=== PATIENT | male | born 1960 | race Caucasian/White ===

== ENCOUNTER 2020-11-26 09:27 | Outpatient (CLI) | payer SELFPAY ==
[2020-11-26 09:38] VITALS: BMI 22.4
--- NOTE | 2020-11-26 09:50 | ECG_ITS ---
[facility] Test Date: 2020-11-26 Pat Name: Peter Marte Department: Room: Gender: Male Consultant Rn: : 1960 Requested By: Michelle Reddy Order Number: [id number] Brooks MD: Michelle Reddy M.D. Interpretive Statements NAME OF STUDY: EXERCISE SESTAMIBI STRESS TEST INDICATION: Chest Pain Baseline blood pressure of 112/80 mm Hg and heart rate 91 beats per minute. EKG showed normal sinus rhythm, leftward axis with normal ST-Ts. The patient exercised for 4 minutes 27 seconds on a standard Akil protocol. Patient attained a maximum heart rate of 142 beats per minute(88% of the maximum predicted heart rate) with a blood pressure at the peak exercise of 161/69 mm Hg. The EKG at the peak exercise revealed. Patient did not have any chest pain or any significant arrhythmis with the exercise During the recovery phase, there were no new changes. Blood pressure at the end of the recovery phase was 101/74 mm Hg with a heart rate of 97 beats per minute. CONCLUSION: 1. Normal EKG response to treadmill exercise. 2. No exercise-induced chest pain or cardiac arrhythmia. 3. Decreased exercise tolerance, attained a maximum of 7 METs. Maximum VO2 of 24.5 mL/kg/min. 4. Baseline normal blood pressure with normal response to exercise. 5. Perfusion scan will be documented separately. Electronically Signed On 11-29-2020 12:37:45 CDT by Michelle Reddy M.D. [id number]
--- NOTE | 2020-11-26 09:50 | NMCV_ITS ---
NM declan perf SPECT r/s* [id number] MartePeter morfin Age: 59 Gender: M : 1960 Exam Date: 11/26/2020 10:30 Ordering Phys: Michelle Reddy MD ([email or web address]) Technologist: SUMIT Haddad Exam Location: [facility] Indications: CHEST PAIN STRESS TEST Please see separate stress test report in [facility] for full findings IMAGE PROTOCOL Rest/Stress 1 Exercise Day Radiopharmaceutical Dose (mCi) Administration Site Administered by Rest: Tc-99m 10.8 IV SUMIT Leon Sestamibi Stress:Tc-99m 32.3 IV SUMIT Leon Sestamibi Rest: 26-Nov-2020 60 Discovery 630 Stress: 26-Nov-2020 30 Discovery 630 Radiopharmaceutical was injected at 85 % maximum heart rate. Images obtained in supine and prone position. SPECT RESULTS Technical Quality: Excellent Raw Data Analysis: Normal Image Corrections: No attenuation or motion correction applied Summed Stress Score: 0 Summed Rest Score: 0 Summed Difference Score: 0 PERFUSION FINDINGS Very small size perfusion abnormality of mild severity of mid inferior wall on rest images with improved tracer uptake on stress images. This is likely suggestive of attenuation artifact. FUNCTIONAL RESULTS (calculated via Gated SPECT) Stress Image LV EF (%): 82 Stress EDV (mL):61 TID: 0.8 Stress ESV (mL):11 FUNCTIONAL FINDINGS: The left ventricle is normal in size. Transient Ischemia Dilatation of 0.8. The left ventricular ejection fraction is normal with a value of 82%. There is hyperdynamic left ventricular wall thickening. No regional wall motion normality. Normal end-diastolic end-systolic volumes. IMPRESSIONS 1. Myocardial perfusion imaging is normal. Attenuation artifact noted in mid inferior wall. 2. Overall left ventricular systolic function is normal without regional wall motion abnormalities. 3. The left ventricular ejection fraction is normal with a value of 82%. 4. No coronary ischemia based on the study. 5. EKG portion of the study will be reported separately. Michelle Reddy MD (Electronically Signed) Final Date: 28 November 2020 13:56 S
[2020-11-26 11:25] VITALS: BP 120/82; PULSE 97
== END 2020-11-26 09:28 | disposition home or self-care (01) ==
PROVIDERS: PCP Nurse Practitioner Family; Visit Provider Internal Medicine Cardiovascular Disease
DX: R07.9 Chest pain, unspecified (principal)
CPT/HCPCS: 78452; 93017; A9500

== ENCOUNTER → 2021-02-08 14:12 | Outpatient (BNVA) | payer SELFPAY | PROVIDERS: PCP Nurse Practitioner Family; Visit Provider Internal Medicine Cardiovascular Disease | DX: Z20.822 Contact with and (suspected) exposure to COVID-19 (principal); Z01.812 Encounter for preprocedural laboratory examination | CPT/HCPCS: 87635 ==

== ENCOUNTER 2021-02-15 10:01 | Outpatient (CLI) | payer SELFPAY ==
--- NOTE | 2021-02-15 13:19 | PFTS_ITS ---
Date of Study:02/15/21 Date of Dictation: MECHANICS: Forced vital capacity (FVC) is reduced. Forced expiratory volume in one second (FEV1) is reduced. FEV1/FVC is reduced. FLOW VOLUME LOOP: Reduced flow at all lung volumes with significant scooping. LUNG VOLUMES: Total lung capacity (TLC) is normal. Residual volume (RV) is increased. DIFFUSING CAPACITY FOR CARBON MONOXIDE: Moderately reduced. INTERPRETATION: The postbronchodilator spirometry is consistent with severe airflow obstruction. There is a significant postbronchodilator response. Lung volumes are consistent with air trapping. Gas exchange (DLCO) is moderately reduced. MTDD
== END 2021-02-15 10:02 | disposition home or self-care (01) ==
LOC: RT 10:03
PROVIDERS: PCP Nurse Practitioner Family; Visit Provider Internal Medicine Cardiovascular Disease
DX: R06.00 Dyspnea, unspecified (principal)
CPT/HCPCS: 94060; 94726; 94729

== ENCOUNTER 2021-04-06 08:47 | Outpatient (CLI) | payer SELFPAY ==
[2021-04-06 09:24] LABS: Basophils # 0.1 10^3/uL (0.0-0.1); Basophils % 0.6 %; Eosinophils # 0.2 10^3/uL (0.0-0.8); Eosinophils % 2.1 %; Hematocrit 41.2 % (42.0-52.0); Hemoglobin 13.6 g/dL (11.7-16.6); Lymphocytes # 4.4 10^3/uL (0.8-4.8); Lymphocytes % 41.7 %; Mean Corpuscular Hemoglobin 32.6 pg (28.0-34.0); Mean Corpuscular Volume 98.8 fl (80-94); Mean Platelet Volume 9.4 fL (7.4-10.4); Monocytes # 0.8 10^3/uL (0.2-0.9); Monocytes % 7.4 %; Neutrophils # 4.99 10^3/uL (1.8-7.7); Neutrophils % 47.6 %; Nucleated Red Blood Cells % 0 %; Platelet Count 337 10^3/cmm (130-400); Red Blood Count 4.17 10^6/uL (4.1-5.3); Red Cell Distribution Width 14.2 % (12.1-15.1); White Blood Count 10.5 10^3/uL (4.0-10.0)
[2021-04-06 09:46] LABS: Alanine Aminotransferase 28 U/L (0-41); Albumin Level 4.4 g/dL (3.5-5.2); Alkaline Phosphatase 44 IU/L (40-130); Anion Gap 16.6 (5-19); Aspartate Amino Transferase 25 U/L (0-40); Blood Urea Nitrogen 18 mg/dL (8-23); Calcium 8.6 mg/dL (8.5-10.5); Carbon Dioxide 23 mmol/L (22-29); Chloride 106 mmol/L (98-107); Chol HDL Ratio 2.73 mg/dL (1.0-5.00); Cholesterol 172 mg/dL (0-200); Globulin 2.5 g/dL (1.3-4.6); Glomerular Filtration Rate 98.6 mL/min (90-130); Glucose 96 mg/dL (65-115); HDL Cholesterol 63 mg/dL (60-100); LDL Cholesterol Calculated 85 mg/dL (50-129); LDL HDL Ratio 1.35 RATIO (0.00-3.22); Osmolality Calculated 294 mOsm/kg (285-295); Potassium 4.6 mmol/L (3.5-5.1); Sodium 141 mmol/L (136-145); Total Bilirubin 0.4 mg/dL (0.15-1.2); Total Protein 6.9 g/dL (6.6-8.7); Triglycerides 122 mg/dL (0-150)
== END 2021-04-06 08:48 | disposition home or self-care (01) ==
LOC: LAB 08:49
PROVIDERS: PCP Nurse Practitioner Family; Visit Provider Internal Medicine Cardiovascular Disease
DX: E78.5 Hyperlipidemia, unspecified (principal); I10 Essential (primary) hypertension; J44.9 Chronic obstructive pulmonary disease, unspecified
CPT/HCPCS: 36415; 80053; 80061; 85025

== ENCOUNTER 2021-05-23 08:23 | Outpatient (CLI) | payer SELFPAY ==
--- NOTE | 2021-05-23 08:45 | CT_ITS ---
WS: [id number] LDCT LUNG CANCER SCREENING HISTORY: Lung cancer screening TECHNIQUE: Axial imaging performed from the apices to 1 cm below the costophrenic angles. Coronal and sagittal reformats are submitted with axial MIP series. All CT scans at [facility] use at least one of these dose optimization techniques: automated exposure control; mA and/or kV adjustment per patient size (includes targeted exams where dose is matched to clinical indication); or iterativ e reconstruction. DLP: 80.71 mGy.cm DIvol: Mean CTDIvol: 1.60 (mGy) COMPARISON: None available. Diagnostic quality: Satisfactory Lung Nodules: Slightly lobulated nodule measuring 6 mm in the RIGHT upper lobe closely associated wit h the major fissure. There is in the additional more elongated mass which may be an endobronchial les ion in the RIGHT upper lobe with a mean diameter of 19 mm. (length of 26 mm x 12 mm). There is adjace nt bronchial wall thickening with tethering and distortion of the adjacent lung parenchyma. Lungs: Otherwise lungs are hyperinflated. Benign granuloma RIGHT lower lobe. Heart: Normal size. Other findings: Hepatic granulomata. No adrenal mass. Mild atherosclerosis aorta. Peripherally calcif ied mass in the superior mediastinum is probably a thyroid nodule measuring 2.1 x 1.4 cm. Loss of the superior endplates of T6 and T7. CT/CT lung screening [id number] IMPRESSION: LUNG-RADS: 4BS-Suspicious with Significant Findings FOLLOW UP: PET/CT recommended OTHER FINDINGS (S MODIFIER): Peripherally calcified mass in the superior medias tinum. Suspect this is a partially calcified nodule from the LEFT thyroid. Keven mmend thyroid ultrasound. Also consider bronchoscopy to evaluate the lesion in the RIGHT upper lobe which may be an endobronchial lesion. There are 2 suspicious lesions in the RIGHT up per lobe.
== END 2021-05-23 08:24 | disposition home or self-care (01) ==
PROVIDERS: PCP Nurse Practitioner Family; Visit Provider Internal Medicine Critical Care Medicine
DX: Z12.2 Encounter for screening for malignant neoplasm of respiratory organs (principal); F17.200 Nicotine dependence, unspecified, uncomplicated; R91.8 Other nonspecific abnormal finding of lung field
CPT/HCPCS: 71271

== ENCOUNTER 2021-07-15 08:33 | Outpatient (CLI) | payer SELFPAY ==
--- NOTE | 2021-07-15 09:30 | US_ITS ---
WS: [email or web address] ULTRASOUND-GUIDED LEFT THYROID NODULE FNA HISTORY: PET positive thyroid nodule, nodule lower pole LEFT thyroid. Procedure, risks, and complications were explained to the patient. Consent has been obtained. Comparison: PET/CT from 06/11/2021 is reviewed. The skin is cleansed with ChloraPrep and anesthetized with 1% buffered lidocaine. FNA performed with 25 gauge needle. neurology technologist is present to fix slides. Only a single fine-needle aspiration was performed. Patient became lightheaded and vomited after the first fine needle aspiration. I believe this is probably a vasovagal reaction. As the dizziness and v omiting persisted no additional biopsies were performed at this time. The first biopsy did appear to obtain soft tissue from the nodule. Will send this for evaluation by pathology to see if it is suffic ient. US/US biopsy/FNA thyroid [id number] IMPRESSION: Only a single FNA is performed as the patient had a significant vasovagal react ion at this time. If the final pathology results are insufficient for diagnosis we can attempt additional aspiration if the patient is willing.
== END 2021-07-15 08:34 | disposition home or self-care (01) ==
PROVIDERS: PCP Nurse Practitioner Family; Visit Provider Internal Medicine Critical Care Medicine
DX: E04.1 Nontoxic single thyroid nodule (principal)
CPT/HCPCS: 10005; 88173; 88305

== ENCOUNTER 2021-08-04 13:15 | Outpatient (CLI) | payer SELFPAY ==
--- NOTE | 2021-08-04 13:45 | US_ITS ---
WS: [email or web address] ULTRASOUND-GUIDED LEFT THYROID NODULE FNA HISTORY: PET positive left thyroid nodule Procedure, risks, and complications were explained to the patient. Consent has been obtained. Solid mass which is PET/CT positive extends from the inferior pole of the LEFT thyroid. The skin is cleansed with ChloraPrep and anesthetized with 1% buffered lidocaine. FNA performed with 25 gauge needles. instructional technologist is present to fix slides. Study was terminated after the 3 fine-needle aspirations as patient experienced a vasovagal reaction. US/US biopsy/FNA thyroid [id number] IMPRESSION: 1. Fine-needle aspiration performed solid mass which is PET/CT positive inferi or pole LEFT thyroid. 3 fine-needle aspirations were performed. As on the prior biopsy attempt the patient had a significant vasovagal reaction and the examin ation needed to be terminated. 2. If this fine-needle aspiration is insufficient for diagnosis this nodule ma y need to be surgically removed. This is the second attempt at achieving materi al for cytopathology.
== END 2021-08-04 13:16 | disposition home or self-care (01) ==
LOC: RAD 13:18
PROVIDERS: PCP Nurse Practitioner Family; Visit Provider Internal Medicine Critical Care Medicine
DX: E04.1 Nontoxic single thyroid nodule (principal)
CPT/HCPCS: 10005; 88173; 88305

== ENCOUNTER 2021-09-13 08:41 | Outpatient (CLI) | payer SELFPAY ==
--- NOTE | 2021-09-13 08:57 | CT_ITS ---
WS: [email or web address] LDCT LUNG CANCER SCREENING TECHNIQUE: Noncontrast CT of the chest with coronal and sagittal reformatted images. CLINICAL INFORMATION: Lung cancer screening COMPARISON: CT Lung 05/23/21 DLP: 81.79 mGy.cm DIvol: Mean CTDIvol: 1.60 (mGy) All CT scans at [facility] use at least one of these dose optimization techniques: automat ed exposure control; mA and/or kV adjustment per patient size (includes targeted exams where dose is matched to clinical indication); or iterative reconstruction. FINDINGS: Previously described FDG avid 2.6 x 1.2 cm RIGHT upper lobe lesion is unchanged and suspicious for ne oplasm. Adjacent 6 mm lesion is also unchanged. Slightly spiculated lesion super segment RIGHT lower lobe lesion is also unchanged measuring 5 mm. LEFT thyroid calcified nodule measuring 2.2 x 1.5 cm is unchanged. Aortic calcification. No mediastin al or hilar lymphadenopathy. No axillary lymphadenopathy. Adrenal glands are normal. Calcified granuloma RIGHT lower lobe. CT/CT lung screening [id number] IMPRESSION: LUNG-RADS: 4B-Suspicious FOLLOW UP: Chest CT with or without contrast 3 months
== END 2021-09-13 08:42 | disposition home or self-care (01) ==
PROVIDERS: PCP Nurse Practitioner Family; Visit Provider Internal Medicine Critical Care Medicine
DX: Z12.2 Encounter for screening for malignant neoplasm of respiratory organs (principal); I70.0 Atherosclerosis of aorta
CPT/HCPCS: 71271

== ENCOUNTER → 2021-11-29 09:33 | Outpatient (BNVA) | payer SELFPAY | PROVIDERS: PCP Nurse Practitioner Family; Referring Provider Internal Medicine Critical Care Medicine; Visit Provider Internal Medicine | DX: E04.1 Nontoxic single thyroid nodule (principal); K21.9 Gastro-esophageal reflux disease without esophagitis | CPT/HCPCS: 36415; 84443 ==

== ENCOUNTER 2022-02-10 07:12 | Outpatient (CLI) | payer SELFPAY ==
--- NOTE | 2022-02-10 07:20 | CT_ITS ---
WS: [email or web address] LDCT LUNG CANCER SCREENING TECHNIQUE: Noncontrast CT of the chest with coronal and sagittal reformatted images. CLINICAL INFORMATION: Lung cancer screening COMPARISON: September 13, 2021 and PET/CT June 11, 2021 DLP: 85.71 mGy.cm DIvol: Mean CTDIvol: 1.60 (mGy) All CT scans at [facility] use at least one of these dose optimization techniques: automat ed exposure control; mA and/or kV adjustment per patient size (includes targeted exams where dose is matched to clinical indication); or iterative reconstruction. FINDINGS: Previously described FDG avid 2.6 x 1.2 cm RIGHT upper lobe spiculated lesion is unchanged since September 13, 2021 and remains suspicious for neoplasm. Adjacent 6 mm satellite lesion is also unchanged. Slightly spiculated lesion super segment RIGHT lower lobe lesion is also unchanged measuring [address] able 4 mm subpleural nodule RIGHT middle lobe. Calcified granuloma RIGHT lower lobe. LEFT thyroid calcified nodule is unchanged. Aortic calcification. No mediastinal or hilar lymphadenop athy. No axillary lymphadenopathy. Adrenal glands are normal. Calcified granuloma RIGHT lower lobe. CT/CT lung screening [id number] IMPRESSION: Consider further evaluation of the spiculated RIGHT upper lobe lesi on with bronchoscopy if this has not been performed. Otherwise recommend 3 jose h LDCT follow-up. LUNG-RADS: 4B-Suspicious FOLLOW UP: See Report
== END 2022-02-10 07:13 | disposition home or self-care (01) ==
LOC: RAD 07:12
PROVIDERS: PCP Nurse Practitioner Family; Visit Provider Internal Medicine Critical Care Medicine
DX: Z12.2 Encounter for screening for malignant neoplasm of respiratory organs (principal); F17.210 Nicotine dependence, cigarettes, uncomplicated
CPT/HCPCS: 71271

== ENCOUNTER 2022-05-02 07:09 | Outpatient (CLI) | payer SELFPAY ==
--- NOTE | 2022-05-02 07:30 | CT_ITS ---
WS: [email or web address] CT CHEST WITHOUT INTRAVENOUS CONTRAST HISTORY: Follow-up lung nodule. TECHNIQUE: Contiguous 5 mm axial imaging performed on the thorax. Coronal and sagittal reformats are submitted. All CT scans at [facility] use at least one of these dose optimization techniques: automated exposure control; mA and/or kV adjustment per patient size (includes targeted exams where dose is matched to clinical indication); or iterative reconstruction. CONTRAST: Omnipaque 350; 95 mL IV. DLP: 352.25 mGy.cm COMPARISON: 02/10/2022, 05/23/2021 and PET/CT 06/11/2021 Lungs and central airway: Hyperexpanded lungs. Reidentified is a 7 mm round nodule RIGHT upper lobe w hich was PET/CT positive. Linear bronchial soft tissue is reidentified measuring 26 x 7 mm. Linear so ft tissue appears to be obstructing the upper lobe bronchus. All of these changes have been present s shira 05/23/2021 and are stable. No increase in size. No new mass or pulmonary nodule. Pleura: Normal. No pleural effusion. Heart and pericardium: Normal size heart with no pericardial effusion. Mediastinum and jorje: No mediastinum or hilar adenopathy. Obstruction of the mid esophageal lumen at the level of the my. On the lateral projection it appears to be a mass within the lumen of the es ophagus measuring 21 x 15 mm. This is probably been present on prior studies have not is well visuali zed. PET/CT was not positive. Vessels: Mild atherosclerosis aorta. No aneurysm. Normal size pulmonary artery. Chest wall and lower neck: Partially calcified mass from the LEFT thyroid extends substernal. Noted o n prior studies and PET/CT positive. Upper abdomen: Splenic and hepatic granulomata. No adrenal mass. No lesions within the liver on this unenhanced exam identified. Osseous structures: No destructive process. CT/CT chest wo con [id number] IMPRESSION: 1. No significant change of the 7 mm PET/CT positive RIGHT upper lobe nodule w ith adjacent bronchial soft tissue. Stable since 05/23/2021. 2. Chronic emphysema with no additional nodules. 3. Soft tissue mass measuring 21 x 15 mm in the esophagus at the level of the my. Negative on the recent PET/CT. Probably a leiomyoma. Consider upper end oscopy. 4. Reidentified partially calcified mass inferior pole LEFT thyroid. 5. No enlarging or new mediastinal or hilar lymph nodes.
== END 2022-05-02 07:10 | disposition home or self-care (01) ==
LOC: RAD 07:12
PROVIDERS: PCP Nurse Practitioner Family; Visit Provider Internal Medicine Pulmonary Disease
DX: R91.1 Solitary pulmonary nodule (principal); J43.9 Emphysema, unspecified
CPT/HCPCS: 71250

== ENCOUNTER → 2023-11-27 08:49 | Outpatient (BNVA) | payer MEDICARE, SELFPAY | PROVIDERS: PCP Nurse Practitioner Family; Referring Provider Nurse Practitioner Family; Visit Provider Student in an Organized Health Care Education/Training Program | DX: R19.4 Change in bowel habit (principal); E04.1 Nontoxic single thyroid nodule; J44.9 Chronic obstructive pulmonary disease, unspecified; K21.9 Gastro-esophageal reflux disease without esophagitis | CPT/HCPCS: 99203 ==

== ENCOUNTER → 2023-12-12 09:44 | Outpatient (BNVA) | payer MEDICARE, SELFPAY | PROVIDERS: PCP Nurse Practitioner Family; Visit Provider Family Medicine | DX: Z01.818 Encounter for other preprocedural examination (principal); I44.4 Left anterior fascicular block; I49.8 Other specified cardiac arrhythmias | CPT/HCPCS: 80053; 85025; 93005 ==

== ENCOUNTER 2024-02-05 07:52 | Day surgery (SDC) | payer MEDICARE, SELFPAY ==
[2024-02-05 08:30] VITALS: BP 152/96; PULSE 92; RESP 18; TEMP 37.1; O2SAT 95; BMI 23.0
--- NOTE | 2024-02-05 08:40 | ANES.PREANE2 ---
Pre-Anesthetic Assessment Height/Weight: Height 1.83 m Weight 77.111 kg Temp Pulse Resp BP Pulse Ox O2 Del Method 98.7 F 92 18 152/96 95 Room Air 02/05/24 08:30 02/05/24 08:30 02/05/24 08:30 02/05/24 08:30 02/05/24 08:30 02/05/24 08:30 Preop Diagnosis: GERD, Screening Operation Date: 02/05/24 09:15 Proposed Procedures p EGD 81142, 43389, G0105, K21.9, Z12.11(Not Applicable) - Deon Singleton MD s Colonoscopy(Not Applicable) - Deon Singleton MD Familial anesthetic complications: none Was Beta Jennifer taken within 24 hours: N/A Was Clonidine taken within 24 hours: N/A Last intake: Intake Last Liquid Date 02/04/24 Last Liquid Time 23:45 Last Solid Date 02/01/24 Last Solid Time 19:00 Social Alcohol and Tobacco 1.5 pack(s) per day 50 pack years Exam alert, oriented x 3, clear to auscultation bilaterally and regular rate & rhythm Airway Submandibular: within normal limits Cervical ROM: within normal limits Mallampati: Class I Dentition: chipped and loose Comments: Comments: poor with sevral missing Pulmonary Chronic Obstructive Pulmonary Disease and Exertional Dyspnea CV/HEM Hypertension None reported Hepatic None reported GI Gastroesophageal Reflux Disease Metabolic Hyperlipidemia and Thyroid Disease (nodules that have been biopsied) Musc/skel None reported Neuropsych Headache Anesthetic Plan ASA status: 2 Anesthesia: MAC Medications/Allergies Home Medications Medication Instructions Recorded Confirmed Last Taken Type atorvastatin 20 mg tablet 20 mg PO DAILY #90 tabs 03/18/21 02/05/24 02/04/24 Rx xuglxyc-uknxyfwfdzrpl-irswslzq 250 1 tab PO Q6H PRN Pain 02/16/22 02/05/24 01/31/24 History mg-250 mg-65 mg tablet (Excedrin Migraine) acetaminophen 325 mg tablet 325 mg PO QID PRN Pain 11/16/22 02/05/24 02/02/24 History pantoprazole 40 mg tablet,delayed 40 mg PO DAILY 11/16/22 02/05/24 02/04/24 History release budesonide-formoterol HFA 160 2 puff inhalation BID #10.2 grams 08/02/05/24 02/04/24 Rx mcg-4.5 mcg/actuation aerosol inhaler (Symbicort) tiotropium bromide 18 mcg capsule 1 cap inhalation DAILY 30 days #60 12/03/23 02/05/24 02/04/24 Rx with inhalation device (Spiriva inhalations with HandiHaler) albuterol sulfate 90 mcg/actuation 2 puff inhalation Q4H PRN Wheezing 12/12/23 02/05/24 02/04/24 History aerosol inhaler lisinopril 20 mg tablet 20 mg PO DAILY 12/12/23 02/05/24 02/04/24 History Allergies Allergy/AdvReac Type Severity Reaction Status Date / Time No Known Allergies Allergy Verified 12/12/23 09:56 PFS Anesthesia Medical History Smoker Hyperlipidemia Helicobacter pylori (H. pylori) HTN (hypertension) GERD (gastroesophageal reflux disease) COPD (chronic obstructive pulmonary disease) Surgical History Hx of appendectomy approx 25 years prior Hx of removal of cyst Family History Father Atrial fibrillation Diabetes Grandmother Diabetes Denies family history of Stroke Social History Smoking and tobacco/nicotine status: current every day tobacco/nicotine user cigarettes Packs smoked per day: 2 Years cigarettes smoked: 49 [ Other cigarette details: Started at age 13] Alcohol intake: current Alcohol intake frequency: 0-2 Drinks per Day Substance/Drug Use: never Data Anesthesia Cardiac Studies: Sestamibi Stress Test (Cardiology) 11/26/20
[2024-02-05] MEDS: sodium chloride 0.9% 1,000 ML 30 ML IV (08:49)
--- NOTE | 2024-02-05 09:00 | W.PM.OPSUD ---
Surgery/Procedure H&P Update DATE OF PROCEDURE: February 05, 2024 DATE H&P PERFORMED: 11/27/23 H&P UPDATE INFORMATION: I have reviewed H&P completed within last 30 days, I have examined patient prior to procedure and No changes to prior documentation PREOP DIAGNOSIS: GERD, Screening PLANNED PROCEDURE: Operation Date: 02/05/24 09:15 Proposed Procedures p EGD 49178, 24931, G0105, K21.9, Z12.11(Not Applicable) - Deon Singleton MD s Colonoscopy(Not Applicable) - Deon Singleton MD
[2024-02-05 10:19] VITALS: BP 145/81; PULSE 78; RESP 12; TEMP 36.3; O2SAT 98
[2024-02-05 10:40] VITALS: BP 131/88; PULSE 83; RESP 14; O2SAT 97
--- NOTE | 2024-02-05 11:00 | ANE.PACU2 ---
Inpatient post-anesthesia follow up: Airway intact: Yes Vital signs: Temperature 97.3 F Pulse Rate 83 Respiratory Rate 14 Blood Pressure 131/88 Pulse Oximetry 97 Oxygen Delivery Me thod Room Air Oxygen Flow Rate Fraction of Inspir ed Oxygen Hydration adequate: Yes Nausea and vomiting: No Pain level: 1 Mental status: Baseline
--- NOTE | 2024-02-06 14:12 | P.HP_ITS ---
Same Day Surgery H&P Indication for Procedure/HPI DATE OF PROCEDURE: February 06, 2024 CHIEF COMPLAINT/INDICATIONFOR SURGICAL PROCEDURE: Dyspepsia, change in stool caliber PREOP DIAGNOSIS: GERD, Screening PLANNED PROCEDURE: Operation Date: 02/05/24 09:15 Proposed Procedures p EGD 99875, 29163, G0105, K21.9, Z12.11(Not Applicable) - Deon Singleton MD s Colonoscopy(Not Applicable) - Deon Singleton MD Medications/Allergies* Home Medications Medication Instructions Recorded Confirmed Type pwowmlp-vnrkjpmsobtpp-joyybqqv 250 1 tab PO Q6H PRN Pain 02/16/22 02/05/24 History mg-250 mg-65 mg tablet (Excedrin Migraine) acetaminophen 325 mg tablet 325 mg PO QID PRN Pain 11/16/22 02/05/24 History pantoprazole 40 mg tablet,delayed 40 mg PO DAILY 11/16/22 02/05/24 History release albuterol sulfate 90 mcg/actuation 2 puff inhalation Q4H PRN Wheezing 12/12/23 02/05/24 History aerosol inhaler lisinopril 20 mg tablet 20 mg PO DAILY 12/12/23 02/05/24 History Allergies/Adverse Reactions Allergy/AdvReac Type Severity Reaction Status Date / Time No Known Allergies Allergy Verified 12/12/23 09:56 Pertinent History/Comorbid Conditions* Medical History (Updated 09/22/21 @ 11:50 by Akil Peterson MD) Smoker Hyperlipidemia Helicobacter pylori (H. pylori) HTN (hypertension) GERD (gastroesophageal reflux disease) COPD (chronic obstructive pulmonary disease) Surgical History (Updated 09/22/20 @ 13:32 by Michelle Reddy MD) Hx of appendectomy approx 25 years prior Hx of removal of cyst Family History (Updated 09/22/20 @ 12:57 by Duyen Smith RN) Diabetes Father Grandmother Atrial fibrillation Father Denies family history of Stroke Social History Smoking and tobacco/nicotine status: current every day tobacco/nicotine user cigarettes Packs smoked per day: 2 Years cigarettes smoked: 49 [ Other cigarette details: Started at age 13] Alcohol intake: current Alcohol intake frequency: 0-2 Drinks per Day Substance/Drug Use: never Pertinent Exam Findings alert, oriented x 3, clear to auscultation bilaterally, regular rate & rhythm an d procedure specific exam findings Abdomen soft, NT, ND Recommendations Surgery/Procedure today Other Plans: Proceed with endoscopy Coding Level of Care Code Acute Code for Chg Fwd
== END 2024-02-05 11:00 | disposition home or self-care (01) ==
PROVIDERS: PCP Nurse Practitioner Family; Visit Provider Student in an Organized Health Care Education/Training Program
PROC: 0DJ08ZZ Inspection of Upper Intestinal Tract, Via Natural or Artificial Opening Endoscopic (ICD-10-PCS; CPT 43235; principal; 2024-02-05 09:15)
PROC: 0DJD8ZZ Inspection of Lower Intestinal Tract, Via Natural or Artificial Opening Endoscopic (ICD-10-PCS; CPT 45378; 2024-02-05 09:15)
DX: Z12.11 Encounter for screening for malignant neoplasm of colon (principal); K21.9 Gastro-esophageal reflux disease without esophagitis; D12.8 Benign neoplasm of rectum; K57.30 Diverticulosis of large intestine without perforation or abscess without bleeding; J44.9 Chronic obstructive pulmonary disease, unspecified; E78.5 Hyperlipidemia, unspecified; F17.210 Nicotine dependence, cigarettes, uncomplicated
CPT/HCPCS: 43239; 45380; 45385; 88305; J2704; J7030

== ENCOUNTER → 2024-02-19 09:58 | Outpatient (BNVA) | payer MEDICARE, SELFPAY | PROVIDERS: PCP Nurse Practitioner Family; Visit Provider Student in an Organized Health Care Education/Training Program | DX: Z09 Encounter for follow-up examination after completed treatment for conditions other than malignant neoplasm (principal); R03.0 Elevated blood-pressure reading, without diagnosis of hypertension | CPT/HCPCS: 99213 ==

== ENCOUNTER 2024-04-10 14:45 | Inpatient (IN) | payer MEDICARE, SELFPAY ==
[2024-04-10] VITALS (11 sets, daily range): BP systolic 165–180; BP diastolic 94–120; PULSE 0–114; RESP 20–24; TEMP 36.9–37.7; O2SAT 89–96; BMI 23.0; BMI 22.9
--- NOTE | 2024-04-10 15:04 | ECG_ITS ---
[facility]: [facility]24[facility]10 Pat Name: Peter Marte Department: Room: Gender: Male Event Staff: : 1960 Requested By: Kiran Lira Order Number: [id number] Todd MD: Joshua Bravo M.D. Measurements Intervals [place] Rate: 107 P: 91 [place]: 171 QRS: -56 QRSD: 89 T: 84 QT: 334 QTc: 447 Interpretive Statements SINUS TACHYCARDIA INDETERMINATE AXIS Compared to ECG 12/12/2023 09:45:51 Indeterminate axis now present Sinus rhythm no longer present Left anterior fascicular block no longer present Electronically Signed On 04-11-2024 21:38:05 DIRECTOR [employer]ANKING by Joshua Brvao M.D. [email or web address]
--- NOTE | 2024-04-10 15:40 | XRR_ITS ---
PROCEDURE INFORMATION: Exam: XR Chest Exam date and time: 04/10/2024 4:11 PM Age: 63 years old Clinical indication: Cough and dyspnea; Additional info: Dyspnea/cough TECHNIQUE: Imaging protocol: Radiologic exam of the chest. Views: 1 view. COMPARISON: CT chest wo con [id number] 05/02/2022 7:26 AM FINDINGS: Tubes, catheters and devices: None. Lungs: Pulmonary emphysema identified within the lungs. Linear density identified within bilateral lower lungs. Evidence for calcified lung granuloma in the right chest. The lungs appear otherwise clear. Pleural spaces: No pleural effusion. No pneumothorax. Heart/Mediastinum: Mediastinum and jorje appear unremarkable. Vasculature: Mild atherosclerotic calcification demonstrated within the aorta. Tortuous and ectatic aorta is demonstrated. Bones/joints: Mild to moderate generalized bony degenerative changes. XR/XR chest 1V portable [id number] IMPRESSION: 1. Pulmonary emphysema. 2. Linear bilateral lower chest pulmonary atelectasis, or scarring. 3. Chronic findings.
[2024-04-10] MEDS: ipratropium-albuterol 3 mL Neb INHALATION ×2 (16:06→20:06)
[2024-04-10 16:09] LABS: ABG PCO2 35.9 mmHg (35-45); ABG PH Result 7.42 (7.35-7.45); Alveolar-Arterial Oxygen Gradi 6.2 mmHg (5-10); Arterial Blood Gas Hematocrit 38.4 % (42-52); Base Excess ABG -1.2 mmol/L (-2.0-2.0); Blood Gas Allen Test Pos; Blood Gas Operator Identificat MONRO; Blood Gas Sample Site Radial, right; Blood Gas Sample Type Arterial; Carboxyhemoglobin 1.7 %THgb (0.4-20.1); HGB O2 Sat 88.2 % (95-100); Ionized Calcium Level - ABG 1.2 mmol/L (1.1-1.4); Methemoglobin 0.2 % (0.4-1.5); Oxygen Device ROOM AIR; Oxygen Saturation ABG 89.9; PO2 ABG 58.3 mmHg (80.0-100.0); PO2 FiO2 Ratio Arterial Blood 277; Potassium Level - ABG 3.8 mmol/L (3.5-5.0); Total Hemoglobin 12.5 g/dL (14-18)
[2024-04-10 16:12] LABS: Basophils # 0.1 10^3/uL (0.0-0.1); Basophils % 0.5 %; Hematocrit 39.9 % (37-53); Lymphocytes # 1.5 10^3/uL (0.8-4.8); Lymphocytes % 13.3 %; Mean Corpuscular HGB Conc 32.8 g/dL (30-55); Mean Corpuscular Hemoglobin 30.9 pg (27-33); Mean Corpuscular Volume 94.1 fl (82-101); Monocytes # 0.6 10^3/uL (0.2-0.9); Monocytes % 5.9 %; Neutrophils # 8.69 10^3/uL (1.8-7.7); Neutrophils % 79.7 %; Nucleated Red Blood Cells % 0 %; Platelet Count 386 10^3/cmm (157-399); Red Blood Count 4.24 10^6/uL (3.85-5.65); Red Cell Distribution Width 15.7 % (12.1-15.1); White Blood Count 10.89 10^3/uL (3.29-11.43)
--- NOTE | 2024-04-10 16:31 | ED_ITS ---
HPI - SOB/Dyspnea 2 General: Chief Complaint: Shortness of Breath/Dyspnea Stated Complaint: sob Time Seen by Provider: 04/10/24 15:40 History of Present Illness: HPI Narrative: 63-year-old male with a history of COPD presents emergency room complaining of increasing shortness of breath that began yesterday. He is on Spiriva and Symbicort and uses as needed albuterol he last had a albuterol inhaler dose approximately 3 hours prior to arrival with minimal response. He denies any fever sweats chills or productive cough. No hemoptysis. No vomiting or diarrhea. Associated symptoms: Reports chest congestion; Deny abdominal pain, chest pain or fever(s) Related Data Home Medications Medication Instructions Recorded Confirmed yyisirg-trdyfbtzatkac-[id number] 250 1 tab PO Q6H PRN Pain 02/16/22 04/10/24 mg-250 mg-65 mg tablet (Excedrin Migraine) acetaminophen 325 mg tablet 325 mg PO QID PRN Pain 11/16/22 04/10/24 pantoprazole 40 mg tablet,delayed 40 mg PO DAILY 11/16/22 04/10/24 release albuterol sulfate 90 mcg/actuation 2 puff inhalation Q4H PRN Wheezing 12/12/23 04/10/24 aerosol inhaler lisinopril 20 mg tablet 20 mg PO DAILY 12/12/23 04/10/24 colestipol 1 gram tablet 1 g PO BID 04/10/24 04/10/24 Previous Rx's Medication Instructions Recorded atorvastatin 20 mg tablet 20 mg PO DAILY #90 tabs 03/18/21 budesonide-formoterol HFA 160 2 puff inhalation BID #10.2 grams 12/03/23 mcg-4.5 mcg/actuation aerosol inhaler (Symbicort) tiotropium bromide 18 mcg capsule 1 cap inhalation DAILY 30 days #60 12/03/23 with inhalation device (Spiriva inhalations with HandiHaler) Allergies Allergy/AdvReac Type Severity Reaction Status Date / Time No Known Allergies Allergy Verified 04/10/24 15:14 Review of Systems 2 Const: Denies: fever(s) or chills Card: Denies: chest pain Resp: Reports: dyspnea, non-productive cough, wheezing and chest congestion GI: Denies: abdominal pain : Denies: dysuria, urinary frequency or urinary urgency Musc: Denies: neck pain or back pain Skin/Breast: Denies: rash PFSH ED 2 PFSH: Medical History Smoker Hyperlipidemia Helicobacter pylori (H. pylori) HTN (hypertension) GERD (gastroesophageal reflux disease) COPD (chronic obstructive pulmonary disease) Surgical History Hx of appendectomy approx 25 years prior Hx of removal of cyst Family History Father Atrial fibrillation Diabetes Grandmother Diabetes Denies family history of Stroke Social History Smoking and tobacco/nicotine status: current every day tobacco/nicotine user cigarettes Packs smoked per day: 2 Years cigarettes smoked: 49 [ Other cigarette details: Started at age 13] Alcohol intake: current Alcohol intake frequency: 0-2 Drinks per Day Substance/Drug Use: never Physical Exam 2 Const: GENERAL APPEARANCE: cooperative ORIENTATION/CONSCIOUSNESS: Yes awake, Yes oriented to person, Yes oriented to place and Yes oriented to time HENMT: COMMON NORMALS: normocephalic, atraumatic and hearing grossly normal bilaterally HEAD & SCALP: normocephalic and atraumatic Resp: AUSCULTATION: rhonchi and wheezes Cardio: COMMON NORMALS: regular rate, regular rhythm and No murmurs present (Cardio) RATE: regular rate RHYTHM: regular rhythm GI: COMMON NORMALS: Soft to palpation and No hepatosplenomegaly present A USCULTATION: Yes normoactive bowel sounds PALPATION: Yes Soft to palpation, No Tenderness to palpation present (GI), No Guarding due to palpation present (GI) and Yes No hepatosplenomegaly present Extremity: COMMON NORMALS: normal to inspection, capillary refill normal, no clubbing, cyanosis or edema, no calf tenderness and no pedal edema Neuro: SENSORIUM/ORIENTATION: Yes oriented to person, Yes oriented to place and Yes oriented to time Skin: COMMON NORMALS: no rashes or lesions noted GENERAL SKIN EXAM: no rashes or lesions noted Course 2 Vital Signs: Vital signs: Vital Signs Temperature 99.8 F H 04/10/24 15:00 Pulse Rate 113 H 04/10/24 16:13 Respiratory Rate 24 H 01/02/25 16:13 Blood Pressure 173/95 04/10/24 15:00 Pulse Oximetry 93 04/10/24 16:13 Oxygen Delivery Me thod Nasal Cannula 04/10/24 16:13 Oxygen Flow Rate 2 04/10/24 16:13 MDM - SOB/Dyspnea Medical Decision Making COPD exacerbation. Slight improvement with nebs, but still tachypnic. No acute findings on the CXR. Will admit to [facility] for exacerbation COPD. Medical Records I reviewed the patient's medical records. Lab Data I reviewed the patient's lab results. 04/10/24 16:03 04/10/24 16:03 Labs/Radiology: Radiology Impressions Chest X-Ray 04/10/24 15:40 IMPRESSION: 1. Pulmonary emphysema. 2. Linear bilateral lower chest pulmonary atelectasis, or scarring. 3. Chronic findings. Laboratory Results WBC 10.89 10^3/uL (3.29-11.43) 04/10/24 16:03 RBC 4.24 10^6/uL (3.85-5.65) 04/10/24 16:03 Hgb 13.10 g/dL (11.27-16.99) 04/10/24 16:03 Hct 39.9 % (37-53) 04/10/24 16:03 MCV 94.1 fl (82-101) 04/10/24 16:03 MCH 30.9 pg (27-33) 04/10/24 16:03 MCHC 32.8 g/dL (30-55) 04/10/24 16:03 RDW 15.7 % (12.1-15.1) H 04/10/24 16:03 Plt Count 386 10^3/cmm (157-399) 04/10/24 16:03 MPV 9.0 fL (7.4-10.4) 04/10/24 16:03 Neut % (Auto) 79.7 % 04/10/24 16:03 Lymph % (Auto) 13.3 % 04/10/24 16:03 Hernando % (Auto) 5.9 % 04/10/24 16:03 Eos % (Auto) 0.0 % 04/10/24 16:03 Baso % (Auto) 0.5 % 04/10/24 16:03 Neut # (Auto) 8.69 10^3/uL (1.8-7.7) H 04/10/24 16:03 Lymph # (Auto) 1.5 10^3/uL (0.8-4.8) 04/10/24 16:03 Hernando # (Auto) 0.6 10^3/uL (0.2-0.9) 04/10/24 16:03 Eos # (Auto) 0.0 10^3/uL (0.0-0.8) 04/10/24 16:03 Baso # (Auto) 0.1 10^3/uL (0.0-0.1) 04/10/24 16:03 Nucleated RBC % (auto) 0 % 04/10/24 16:03 Nucleated RBCs # 0.0 /100WBC 04/10/24 16:03 Specimen Type Arterial 04/10/24 15:52 Sample Site Radial, right 04/10/24 15:52 ABG pH 7.42 (7.35-7.45) 04/10/24 15:52 ABG pCO2 35.9 mmHg (35-45) 04/10/24 15:52 ABG pO2 58.3 mmHg (80.0-100.0) L 04/10/24 15:52 ABG PO2/FiO2 Ratio 277 04/10/24 15:52 ABG HCO3 23.0 mmol/L (22-26) 04/10/24 15:52 ABG O2 Saturation 89.9 04/10/24 15:52 ABG Base Excess -1.2 mmol/L (-2.0-2.0) 04/10/24 15:52 Idris Test Pos 04/10/24 15:52 A-a O2 Gradient 6.2 mmHg (5-10) 04/10/24 15:52 Hematocrit 38.4 % (42-52) L 04/10/24 15:52 Hgb O2 Saturation 88.2 % (95-100) L 04/10/24 15:52 Carboxyhemoglobin 1.7 %THgb (0.4-20.1) 04/10/24 15:52 Methemoglobin 0.2 % (0.4-1.5) L 04/10/24 15:52 Total Hemoglobin 12.5 g/dL (14-18) L 04/10/24 15:52 Sodium 140.0 mmol/L (131-143) 04/10/24 15:52 Potassium 3.8 mmol/L (3.5-5.0) 04/10/24 15:52 Glucose 110.0 mg/dL (70-115) 04/10/24 15:52 Ionized Calcium 1.2 mmol/L (1.1-1.4) 04/10/24 15:52 O2 Delivery Device Room air 04/10/24 15:52 FiO2 21.0 % 04/10/24 15:52 Fitness Teacher ID Monro 04/10/24 15:52 Sodium 138 mmol/L (136-145) 04/10/24 16:03 Potassium 4.0 mmol/L (3.5-5.1) 04/10/24 16:03 Chloride 102 mmol/L (98-107) 04/10/24 16:03 Carbon Dioxide 23 mmol/L (22-29) 04/10/24 16:03 Anion Gap 17.0 (5-19) 04/10/24 16:03 BUN 10 mg/dL (8-23) 04/10/24 16:03 Creatinine 0.7 mg/dL (0.7-1.2) 04/10/24 16:03 GFR Calculation 113.9 mL/min (90-130) 04/10/24 16:03 Glucose 110 mg/dL (65-115) 04/10/24 16:03 Calculated Osmolality 286 mOsm/kg (285-295) 04/10/24 16:03 Lactic Acid 1.1 mmol/L (0.5-2.2) 04/10/24 16:03 Calcium 9.5 mg/dL (8.5-10.5) 04/10/24 16:03 Total Bilirubin 0.2 mg/dL (0.15-1.2) 04/10/24 16:03 AST 21 U/L (0-40) 04/10/24 16:03 ALT 13 U/L (0-41) 04/10/24 16:03 Alkaline Phosphatase 62 U/L (40-130) 04/10/24 16:03 Total Protein 7.8 g/dL (6.6-8.7) 04/10/24 16:03 Albumin 4.4 g/dL (3.5-5.2) 04/10/24 16:03 Globulin 3.4 g/dL (1.3-4.6) 04/10/24 16:03 All radiology interpretation(s) finalized by discharge Discharge Plan Discharge Patient Disposition: Placed in Observation Clinical Impression: Acute exacerbation of chronic obstructive airways disease Condition: Stable Prescriptions: No Action Excedrin Migraine 250-250-65 mg tablet 1 tab PO Q6H PRN (Reason: Pain) atorvastatin 20 mg tablet 20 mg PO DAILY Qty: 90 1RF pantoprazole 40 mg tablet,delayed release (DR/EC) 40 mg PO DAILY acetaminophen 325 mg tablet 325 mg PO QID PRN (Reason: Pain) lisinopril 20 mg tablet 20 mg PO DAILY albuterol sulfate 90 mcg/actuation HFA aerosol inhaler 2 puff inhalation Q4H PRN (Reason: Wheezing) Spiriva with HandiHaler 18 mcg capsule, w/inhalation device 1 cap inhalation DAILY 30 Days Qty: 60 6RF Rx Instructions: puncture 1 cap using device; one dose = 2 inhalations budesonide-formoterol [Symbicort] 160-4.5 mcg/actuation HFA aerosol inhaler 2 puff inhalation BID Qty: 10.2 6RF colestipol 1 gram tablet 1 g PO BID Referrals: Izabel Stack FNP [Primary Care Provider] - Patient Instructions: Opioid Safety, Pain Management Coding Level of Care Code ED Plasterer Spray Gun for Meme Ho
[2024-04-10 16:33] LABS: Alanine Aminotransferase 13 U/L (0-41); Albumin Level 4.4 g/dL (3.5-5.2); Alkaline Phosphatase 62 U/L (40-130); Aspartate Amino Transferase 21 U/L (0-40); Blood Urea Nitrogen 10 mg/dL (8-23); Calcium 9.5 mg/dL (8.5-10.5); Carbon Dioxide 23 mmol/L (22-29); Chloride 102 mmol/L (98-107); Creatinine Clr Calc Pharmacy 118.2567; Globulin 3.4 g/dL (1.3-4.6); Glomerular Filtration Rate 113.9 mL/min (90-130); Glucose 110 mg/dL (65-115); Osmolality Calculated 286 mOsm/kg (285-295); Sodium 138 mmol/L (136-145); Total Bilirubin 0.2 mg/dL (0.15-1.2); Total Protein 7.8 g/dL (6.6-8.7)
[2024-04-10 16:34] LABS: Lactic Sepsis W/Reflex 1.1 mmol/L (0.5-2.2)
[2024-04-10] MEDS: dexamethasone 10 mg/mL INJ IM (17:35)
[2024-04-10 17:58] LABS: Covid PCR NEGATIVE (Negative); Influenza A POSITIVE (Negative); Influenza B NEGATIVE (Negative); Respiratory Syncytial Virus Ce NEGATIVE (Negative)
--- NOTE | 2024-04-10 18:02 | P.HP_ITS ---
Providers/Chief Complaint 2 Admitting Physician: Ridge Green MD Primary Care Provider: SUE Urbina Chief Complaint: sob History of Present Illness Peter Marte is a 63 year old male with a past medical history of COPD, smoker, hypertension, H. pylori, who presents [facility] due to shortness of breath, cough, fatigue, malaise for the last few days. Patient reports that for the last few days he has had increasingly short of breath, cough, fatigue, malaise, wheezing. Patient tells that recently he was in [place], receiving EGD which she was diagnosed with a gastric ulcer that almost perforated, but was healing once he had his EGD, no bloody black stools reported, no hematemesis reported, no abdominal pain reported Review of Systems 2 Const: Denies: fever(s) Card: Denies: chest pain Resp: Reports: dyspnea Medications/Allergies Home Medications Medication Instructions Recorded Confirmed Last Taken Type atorvastatin 20 mg tablet 20 mg PO DAILY #90 tabs 03/18/21 04/10/24 04/10/24 Rx vmhayet-edycykfrdhfoa-wdvjesgg 250 1 tab PO Q6H PRN Pain 02/16/22 04/10/24 01/31/24 History mg-250 mg-65 mg tablet (Excedrin Migraine) acetaminophen 325 mg tablet 325 mg PO QID PRN Pain 11/16/22 04/10/24 04/10/24 History pantoprazole 40 mg tablet,delayed 40 mg PO DAILY 11/16/22 04/10/24 04/10/24 History release budesonide-formoterol HFA 160 2 puff inhalation BID #10.2 grams 12/03/23 04/10/24 04/10/24 Rx mcg-4.5 mcg/actuation aerosol inhaler (Symbicort) tiotropium bromide 18 mcg capsule 1 cap inhalation DAILY 30 days #60 12/03/23 04/10/24 04/10/24 Rx with inhalation device (Spiriva inhalations with HandiHaler) albuterol sulfate 90 mcg/actuation 2 puff inhalation Q4H PRN Wheezing 12/12/23 04/10/24 04/10/24 History aerosol inhaler lisinopril 20 mg tablet 20 mg PO DAILY 12/12/23 04/10/24 04/10/24 History colestipol 1 gram tablet 1 g PO BID 04/10/24 04/10/24 04/10/24 History Allergies Allergy/AdvReac Type Severity Reaction Status Date / Time No Known Allergies Allergy Verified 04/10/24 15:14 PFSH Acute 2 PFSH: Medical History Smoker Hyperlipidemia Helicobacter pylori (H. pylori) HTN (hypertension) GERD (gastroesophageal reflux disease) COPD (chronic obstructive pulmonary disease) Surgical History Hx of appendectomy approx 25 years prior Hx of removal of cyst Family History Father Atrial fibrillation Diabetes Grandmother Diabetes Denies family history of Stroke Social History Smoking and tobacco/nicotine status: current every day tobacco/nicotine user cigarettes Packs smoked per day: 2 Years cigarettes smoked: 49 [ Other cigarette details: Started at age 13] Alcohol intake: current Alcohol intake frequency: 0-2 Drinks per Day Substance/Drug Use: never Vitals/I&O/Wt Last Vital Signs Temp 99.8 F H 04/10/24 15:00 Pulse 113 H 04/10/24 16:13 Resp 24 H 04/10/24 16:13 BP 173/95 04/10/24 15:00 Pulse Ox 93 04/10/24 16:13 O2 Del Method Nasal Cannula 04/10/24 16:13 O2 Flow Rate 2 04/10/24 16:13 Weight last 48 hrs Weight 77.111 kg Physical Exam 2 Const: COMMON NORMALS: no acute distress and patient oriented x3 HENMT: COMMON NORMALS: normocephalic HEAD & SCALP: normocephalic Neck/C-Spine: COMMON NORMALS: no JVD Resp: COMMON NORMALS: normal respiratory effort, No retractions and No use of accessory muscles AUSCULTATION: wheezes Cardio: COMMON NORMALS: regular rate, regular rhythm, S1 normal heart sound present and S2 normal heart sound present RATE: regular rate RHYTHM: r egular rhythm HEART SOUNDS: S1 normal heart sound present and S2 normal heart sound present GI: COMMON NORMALS: Normal to inspection, nondistended, normoactive bowel sounds present, Soft to palpation and non-tender Extremity: COMMON NORMALS: no calf tenderness and no pedal edema Neuro: COMMON NORMALS: patient oriented x3, CN's II-XII intact bilaterally and moves all extremities Psych: COMMON NORMALS: mental status grossly normal Data 04/10/24 16:03 04/10/24 16:03 Micro: Microbiology 04/10/24 16:29 Blood Culture - Preliminary Blood SPECIMEN COLLECTED 04/10/24 16:25 Blood Culture - Preliminary Blood SPECIMEN COLLECTED A&P Assessment and plan (1) Influenza A: (2) Acute exacerbation of chronic obstructive pulmonary disease (COPD): Plan Acute COPD exacerbation -Influenza A Plan -Monitor respiratory status closely -Tamiflu -Solu-Medrol 40 mg IV every 8 hours -DuoNeb -Budesonide -Sputum culture -Blood culture -Pro-Richard, CRP -Full code -SCDs for DVT prophylaxis -Lovenox relatively contraindicated, due to history of gastric ulcer Attestations 2 Medical Necessity Statement*: Patient requires hospitalization, inpatient, greater than 2 midnights, for COPD exacerbation, influenza A Diagnoses Influenza A J10.1 Acute exacerbation of chronic obstructive pulmonary disease (COPD) J44.1
[2024-04-10 18:40] LABS: NT Pro B Type Natriuretic Pept 182 pg/mL (0-125); Procalcitonin 0.06 ng/mL (0-0.5)
[2024-04-10] MEDS: sucralfate 1 gm/10 mL Oral Liq UDC PO (18:44)
[2024-04-10] MEDS: acetaminophen 325 mg Tablet 650 MG PO (18:44)
[2024-04-10] MEDS: pantoprazole 40 mg SDV IVP (18:44)
[2024-04-10] MEDS: oseltamivir phosphate 75 mg Capsule PO (18:44)
[2024-04-10 18:51] LABS: C Reactive Protein 133.8 mg/L (0.0-4.9)
[2024-04-10 19:02] LABS: Estmated Average Glucose 111; Hemoglobin A1C 5.5 % (4.0-6.0)
[2024-04-10 19:14] LABS: Chol HDL Ratio 2.28 mg/dL (1.0-5.00); Cholesterol 146 mg/dL (0-200); HDL Cholesterol 64 mg/dL (60-100); LDL Cholesterol Calculated 64 mg/dL (50-129); Thyroid Stimulating Hormone 0.31 uIU/mL (0.27-4.20); Triglycerides 92 mg/dL (0-150)
[2024-04-10] MEDS: budesonide 0.5 mg/2 mL Neb INHALATION (20:06)
[2024-04-11] VITALS (10 sets, daily range): BP systolic 111–160; BP diastolic 68–99; PULSE 85–108; RESP 16–24; TEMP 36.6–37.2; O2SAT 88–98
[2024-04-11] MEDS: acetaminophen 325 mg Tablet 650 MG PO ×2 (00:28→21:50)
[2024-04-11] MEDS: sucralfate 1 gm/10 mL Oral Liq UDC PO ×5 (00:28→23:59)
[2024-04-11] MEDS: pantoprazole 40 mg SDV IVP ×2 (05:25→17:59)
[2024-04-11] MEDS: methylPREDNISolone sod succ 40 mg/mL INJ IVP ×3 (05:25→21:46)
[2024-04-11 06:14] LABS: Basophils % 0.1 %; Eosinophils % 0.1 %; Hematocrit 39.8 % (37-53); Lymphocytes # 1.7 10^3/uL (0.8-4.8); Lymphocytes % 15.7 %; Mean Corpuscular HGB Conc 32.7 g/dL (30-55); Mean Corpuscular Hemoglobin 30.9 pg (27-33); Mean Corpuscular Volume 94.5 fl (82-101); Mean Platelet Volume 9.3 fL (7.4-10.4); Monocytes # 0.3 10^3/uL (0.2-0.9); Monocytes % 2.5 %; Neutrophils # 8.73 10^3/uL (1.8-7.7); Neutrophils % 81.3 %; Nucleated Red Blood Cells % 0 %; Platelet Count 386 10^3/cmm (157-399); Red Blood Count 4.21 10^6/uL (3.85-5.65); Red Cell Distribution Width 15.5 % (12.1-15.1); White Blood Count 10.73 10^3/uL (3.29-11.43)
[2024-04-11 06:31] LABS: Anion Gap 19.3 (5-19); Blood Urea Nitrogen 12 mg/dL (8-23); Calcium 9.6 mg/dL (8.5-10.5); Carbon Dioxide 24 mmol/L (22-29); Chloride 101 mmol/L (98-107); Creatinine Clr Calc Pharmacy 134.0527; Glomerular Filtration Rate 136.1 mL/min (90-130); Glucose 127 mg/dL (65-115); Magnesium 2.3 mg/dL (1.7-2.3); Osmolality Calculated 291 mOsm/kg (285-295); Potassium 4.3 mmol/L (3.5-5.1); Sodium 140 mmol/L (136-145)
[2024-04-11] MEDS: amlodipine 5 mg Tablet PO (08:13)
[2024-04-11] MEDS: atorvastatin 40 mg Tablet 20 MG PO (08:13)
[2024-04-11] MEDS: oseltamivir phosphate 75 mg Capsule PO ×2 (08:13→17:59)
[2024-04-11] MEDS: lisinopril 20 mg Tablet PO (08:13)
[2024-04-11] MEDS: ipratropium-albuterol 3 mL Neb INHALATION ×2 (11:23→20:10)
--- NOTE | 2024-04-11 15:28 | P.PN_ITS ---
Subjective 2 Subjective: Patient continues to complain of wheezing, shortness of breath fatigue and malaise this morning Vitals/I&O/Wt Last Vital Signs Temp 98.1 F 04/11/24 12:00 Pulse 106 H 04/11/24 12:00 Resp 22 H 04/11/24 12:00 BP 135/83 04/11/24 12:00 Pulse Ox 96 04/11/24 12:00 O2 Del Method Nasal Cannula 04/11/24 12:00 O2 Flow Rate 2 04/11/24 11:25 04/11/24 04/11/24 04/11/24 06:59 14:59 22:59 Intake Total 240 / 480 290 / 290 Balance 240 / 480 290 / 290 Weight last 48 hrs Weight 71.622 kg Weight 76.856 kg Weight 77.111 kg Physical Exam 2 Const: COMMON NORMALS: no acute distress and patient oriented x3 Resp: COMMON NORMALS: normal respiratory effort, No retractions and No use of accessory muscles AUSCULTATION: wheezes Cardio: COMMON NORMALS: regular rate, regular rhythm, S1 normal heart sound present and S2 normal heart sound present RATE: regular rate RHYTHM: r egular rhythm HEART SOUNDS: S1 normal heart sound present and S2 normal heart sound present GI: COMMON NORMALS: Normal to inspection, nondistended, normoactive bowel sounds present and non-tender Extremity: COMMON NORMALS: no pedal edema Neuro: COMMON NORMALS: patient oriented x3 Psych: COMMON NORMALS: mental status grossly normal Data 04/11/24 05:50 04/11/24 05:50 Micro: Microbiology 04/10/24 16:29 Blood Culture - Preliminary Blood SPECIMEN COLLECTED 04/10/24 16:25 Blood Culture - Preliminary Blood SPECIMEN COLLECTED A&P Assessment and plan (1) Influenza A: (2) Acute exacerbation of chronic obstructive pulmonary disease (COPD): Plan Acute COPD exacerbation -Influenza A Plan -Monitor respiratory status closely -Tamiflu -Solu-Medrol 40 mg IV every 8 hours -DuoNeb -Budesonide -Sputum culture -Blood culture -Pro-Richard 0.06, CRP 133 -Full code -SCDs for DVT prophylaxis -Lovenox relatively contraindicated, due to history of gastric ulcer Attestations 2 Medical Necessity Statement*: Patient requires hospitalization for acute COPD exacerbation, influenza A Diagnoses Influenza A J10.1 Acute exacerbation of chronic obstructive pulmonary disease (COPD) J44.1
[2024-04-11] MEDS: budesonide 0.5 mg/2 mL Neb INHALATION (20:10)
[2024-04-12] VITALS (7 sets, daily range): BP systolic 123–147; BP diastolic 80–95; PULSE 75–103; RESP 15–20; TEMP 36.6–37.1; O2SAT 92–98
[2024-04-12 03:57] LABS: Basophils % 0.1 %; Hematocrit 38.5 % (37-53); Lymphocytes # 1.5 10^3/uL (0.8-4.8); Lymphocytes % 10.7 %; Mean Corpuscular HGB Conc 33.2 g/dL (30-55); Mean Corpuscular Hemoglobin 31.1 pg (27-33); Mean Corpuscular Volume 93.4 fl (82-101); Mean Platelet Volume 9.2 fL (7.4-10.4); Monocytes # 0.5 10^3/uL (0.2-0.9); Monocytes % 3.3 %; Neutrophils % 85.3 %; Nucleated Red Blood Cells % 0 %; Platelet Count 398 10^3/cmm (157-399); Red Blood Count 4.12 10^6/uL (3.85-5.65); Red Cell Distribution Width 15.1 % (12.1-15.1); White Blood Count 13.49 10^3/uL (3.29-11.43)
[2024-04-12 04:08] LABS: Anion Gap 16.6 (5-19); Blood Urea Nitrogen 22 mg/dL (8-23); Calcium 9.1 mg/dL (8.5-10.5); Carbon Dioxide 26 mmol/L (22-29); Chloride 103 mmol/L (98-107); Creatinine Clr Calc Pharmacy 100.5395; Glomerular Filtration Rate 97.6 mL/min (90-130); Glucose 174 mg/dL (65-115); Magnesium 2.7 mg/dL (1.7-2.3); Osmolality Calculated 300 mOsm/kg (285-295); Potassium 4.6 mmol/L (3.5-5.1); Sodium 141 mmol/L (136-145)
[2024-04-12] MEDS: sucralfate 1 gm/10 mL Oral Liq UDC PO ×2 (05:27→19:36)
[2024-04-12] MEDS: methylPREDNISolone sod succ 40 mg/mL INJ IVP ×2 (05:27→17:44)
[2024-04-12] MEDS: pantoprazole 40 mg SDV IVP (05:27)
[2024-04-12] MEDS: budesonide 0.5 mg/2 mL Neb INHALATION (09:08)
[2024-04-12] MEDS: ipratropium-albuterol 3 mL Neb INHALATION (09:08)
--- NOTE | 2024-04-12 09:50 | PC.CHAP ---
Pastoral Care Encounter/Spiritual Assessment Type of Contact [] Declined head end desizing machine operator visit [] Patient/Family/Request visit [] Outpatient visit [] Follow-up visit [] Physician referral [] Code/Alert [] Routine visit [] Staff referral [] Actively dying [] Patient sleeping [] Family support [] [] Out of room [] Palliative care [] [] Receiving care in room [] Pre-surgical visit [] Trauma [] Long length of stay [] ICU visit [X] Other: STOP : Air Contaminants Relational/Emotional Strength [] Patient feels connected with others/family/visitors/staff [] Distress [] Loneliness/isolation [] Abandonment Spirituality of Patient [] Person of Kareen [] Attends Religion of their [place]en [] Believes in Prayer [] Reads Bible or Faith materials [] There are Spiritual issues to be addressed Plumbing Installer Interventions [] Prayer [] Active listening [] Non-anxious presence [] Spiritual/emotional support [] Crisis/trauma care [] Spiritual counseling [] Bereavement support [] Provided bereavement packet [] Provided Bible/devotional materials [] Provided toy/stuffed animal, coloring book to patient or family member [] Provided Communion [] Anointing/[place] [] Salvation [] Completed spiritual assessment [] Other: Impact on Illness or Injury [] Angry [] Fearful [] Anxious [] Often cries [] Exhaustion [] Unable to work [] Unable to attend buddhist [] Unable to walk/stand [] Unable to read [] Unable to drive [] Unable to eat/drink [] Unable to sleep [] Unable to be with family [] Patient intubated [] Other: Summary Time spent with patient
[2024-04-12] MEDS: atorvastatin 40 mg Tablet 20 MG PO (11:10)
[2024-04-12] MEDS: amlodipine 5 mg Tablet PO (11:10)
[2024-04-12] MEDS: lisinopril 20 mg Tablet PO (11:10)
[2024-04-12] MEDS: oseltamivir phosphate 75 mg Capsule PO ×2 (11:10→17:44)
--- NOTE | 2024-04-12 15:27 | P.PN_ITS ---
Subjective 2 Subjective: Patient was seen this morning, does report wheezing, persistent shortness of breath, does have a cough fatigue, malaise Vitals/I&O/Wt Last Vital Signs Temp 98.5 F 04/12/24 07:38 Pulse 85 04/12/24 12:00 Resp 15 04/12/24 12:00 BP 131/88 04/12/24 12:00 Pulse Ox 92 04/12/24 12:00 O2 Del Method Nasal Cannula 04/12/24 12:00 O2 Flow Rate 2 04/12/24 12:00 04/12/24 04/12/24 04/12/24 06:59 14:59 22:59 Intake Total 480 / 480 Balance 480 / 480 Weight last 48 hrs Weight 72.376 kg Weight 71.622 kg Weight 76.856 kg Physical Exam 2 Const: COMMON NORMALS: no acute distress and patient oriented x3 Resp: COMMON NORMALS: normal respiratory effort, No retractions and No use of accessory muscles AUSCULTATION: wheezes Cardio: COMMON NORMALS: regular rate, regular rhythm, S1 normal heart sound present and S2 normal heart sound present RATE: regular rate RHYTHM: r egular rhythm HEART SOUNDS: S1 normal heart sound present and S2 normal heart sound present GI: COMMON NORMALS: Normal to inspection, nondistended, normoactive bowel sounds present and non-tender Extremity: COMMON NORMALS: no pedal edema Neuro: COMMON NORMALS: patient oriented x3 Psych: COMMON NORMALS: mental status grossly normal Data 04/12/24 03:28 04/12/24 03:28 Micro: Microbiology 04/10/24 16:29 Blood Culture - Preliminary Blood NEGATIVE TO DATE 04/10/24 16:25 Blood Culture - Preliminary Blood NEGATIVE TO DATE A&P Assessment and plan (1) Influenza A: (2) Acute exacerbation of chronic obstructive pulmonary disease (COPD): Plan Acute COPD exacerbation -Influenza A Plan -Monitor respiratory status closely -Tamiflu -Solu-Medrol 40 mg IV every 8 hours -DuoNeb -Budesonide -Sputum culture -Blood culture -Pro-Richard 0.06, CRP 133 -Full code -SCDs for DVT prophylaxis -Lovenox relatively contraindicated, due to history of gastric ulcer Plan for today continue steroids, continue up out of bed Attestations 2 Medical Necessity Statement*: Patient requires hospitalization for acute COPD exacerbation, influenza A Diagnoses Influenza A J10.1 Acute exacerbation of chronic obstructive pulmonary disease (COPD) J44.1
[2024-04-12] MEDS: pantoprazole DR 40 mg Tablet PO (17:44)
[2024-04-13] VITALS (8 sets, daily range): BP systolic 123–151; BP diastolic 74–93; PULSE 89–108; RESP 16–19; TEMP 36.4–37.2; O2SAT 96–98
[2024-04-13] MEDS: methylPREDNISolone sod succ 40 mg/mL INJ IVP ×2 (01:09→10:31)
[2024-04-13] MEDS: sucralfate 1 gm/10 mL Oral Liq UDC PO ×2 (01:09→10:31)
[2024-04-13 04:50] LABS: Basophils % 0.1 %; Hematocrit 40.6 % (37-53); Lymphocytes # 1.5 10^3/uL (0.8-4.8); Lymphocytes % 11.7 %; Mean Corpuscular HGB Conc 31.8 g/dL (30-55); Mean Corpuscular Hemoglobin 30.6 pg (27-33); Mean Corpuscular Volume 96.4 fl (82-101); Mean Platelet Volume 9.8 fL (7.4-10.4); Monocytes # 0.3 10^3/uL (0.2-0.9); Monocytes % 2.6 %; Neutrophils # 10.73 10^3/uL (1.8-7.7); Nucleated Red Blood Cells % 0 %; Platelet Count 287 10^3/cmm (157-399); Red Blood Count 4.21 10^6/uL (3.85-5.65); Red Cell Distribution Width 15.1 % (12.1-15.1); White Blood Count 12.62 10^3/uL (3.29-11.43)
[2024-04-13 05:08] LABS: Anion Gap 25.4 (5-19); Blood Urea Nitrogen 25 mg/dL (8-23); Calcium 9.1 mg/dL (8.5-10.5); Carbon Dioxide 25 mmol/L (22-29); Chloride 97 mmol/L (98-107); Creatinine Clr Calc Pharmacy 115.3631; Glomerular Filtration Rate 113.9 mL/min (90-130); Glucose 133 mg/dL (65-115); Magnesium 2.2 mg/dL (1.7-2.3); Osmolality Calculated 302 mOsm/kg (285-295); Potassium 4.4 mmol/L (3.5-5.1); Sodium 143 mmol/L (136-145)
[2024-04-13] MEDS: ipratropium-albuterol 3 mL Neb INHALATION ×2 (07:40→11:26)
[2024-04-13] MEDS: budesonide 0.5 mg/2 mL Neb INHALATION (07:40)
[2024-04-13] MEDS: pantoprazole DR 40 mg Tablet PO (10:30)
[2024-04-13] MEDS: oseltamivir phosphate 75 mg Capsule PO (10:30)
[2024-04-13] MEDS: lisinopril 20 mg Tablet PO (10:30)
[2024-04-13] MEDS: amlodipine 5 mg Tablet PO (10:30)
[2024-04-13] MEDS: atorvastatin 40 mg Tablet 20 MG PO (10:31)
--- NOTE | 2024-04-13 10:50 | PM.DCS ---
Discharge Providers Date of Admission: 04/10/24 17:58 Date of Discharge: April 13, 2024 Attending Provider at Admission: Ridge Green MD Attending Provider at Discharge: Ridge Green MD Primary Care Provider: SUE Urbina Diagnoses at Discharge Discharge Diagnosis (1) Influenza A: Status: Acute (2) Acute exacerbation of chronic obstructive pulmonary disease (COPD): Status: Acute Reason for Visit Reason for Visit: sob Hospital Course Hospital Course Peter Marte is a 63 year old male with a past medical history of COPD, smoker, hypertension, H. pylori, who presents [facility] due to shortness of breath, cough, fatigue, malaise for the last few days. Patient reports that for the last few days he has had increasingly short of breath, cough, fatigue, malaise, wheezing. Patient tells that recently he was in [place], receiving EGD which she was diagnosed with a gastric ulcer that almost perforated, but was healing once he had his EGD, no bloody black stools reported, no hematemesis reported, no abdominal pain reported Patient requires hospitalization for acute COPD exacerbation, influenza A, acute hypoxic respiratory failure, monitored as inpatient receiving steroids, Tamiflu, IV steroid therapy overall clinically proved. Will be discharged on prednisone burst, Tamiflu, oxygen therapy with a close follow-up with primary care provider as outpatient. Patient was advised to quit smoking, follow-up with pulmonary as outpatient Physical Exam Const: COMMON NORMALS: no acute distress and patient oriented x3 Resp: COMMON NORMALS: normal respiratory effort, No retractions, No use of accessory muscles and clear to auscultation bilaterally AUSCULTATION: clear to auscultation bilaterally Cardio: COMMON NORMALS: regular rate, regular rhythm, S1 normal heart sound present and S2 normal heart sound present RATE: regular rate RHYTHM: regular rhythm HEART SOUNDS: S1 normal heart sound present and S2 normal heart sound present GI: COMMON NORMALS: Normal to inspection, nondistended, normoactive bowel sounds present and non-tender Extremity: COMMON NORMALS: no pedal edema Neuro: COMMON NORMALS: patient oriented x3 Psych: COMMON NORMALS: mental status grossly normal Discharge Data Studies Completed and Pending Completed Studies During Hospitalization Category Date Time Status XR chest 1V portable [id number] Stat Exams 04/10/24 15:40 Completed Pending at discharge Category Date Time Status Blood Culture Stat Lab 04/10/24 16:29 Results Radiology Impressions Chest X-Ray 04/10/24 15:40 IMPRESSION: 1. Pulmonary emphysema. 2. Linear bilateral lower chest pulmonary atelectasis, or scarring. 3. Chronic findings. Laboratory Results WBC 12.62 10^3/uL (3.29-11.43) H 04/13/24 04:10 RBC 4.21 10^6/uL (3.85-5.65) 04/13/24 04:10 Hgb 12.90 g/dL (11.27-16.99) 04/13/24 04:10 Hct 40.6 % (37-53) 04/13/24 04:10 MCV 96.4 fl (82-101) 04/13/24 04:10 MCH 30.6 pg (27-33) 04/13/24 04:10 MCHC 31.8 g/dL (30-55) 04/13/24 04:10 RDW 15.1 % (12.1-15.1) 04/13/24 04:10 Plt Count 287 10^3/cmm (157-399) 04/13/24 04:10 MPV 9.8 fL (7.4-10.4) 04/13/24 04:10 Neut % (Auto) 85.0 % 04/13/24 04:10 Lymph % (Auto) 11.7 % 04/13/24 04:10 Dillon % (Auto) 2.6 % 04/13/24 04:10 Eos % (Auto) 0.0 % 04/13/24 04:10 Baso % (Auto) 0.1 % 04/13/24 04:10 Neut # (Auto) 10.73 10^3/uL (1.8-7.7) H 04/13/24 04:10 Lymph # (Auto) 1.5 10^3/uL (0.8-4.8) 04/13/24 04:10 Dillon # (Auto) 0.3 10^3/uL (0.2-0.9) 04/13/24 04:10 Eos # (Auto) 0.0 10^3/uL (0.0-0.8) 04/13/24 04:10 Baso # (Auto) 0.0 10^3/uL (0.0-0.1) 04/13/24 04:10 Nucleated RBC % (auto) 0 % 04/13/24 04:10 Nucleated RBCs # 0.0 /100WBC 04/13/24 04:10 Specimen Type Arterial 04/10/24 15:52 Sample Site Radial, right 04/10/24 15:52 ABG pH 7.42 (7.35-7.45) 04/10/24 15:52 ABG pCO2 35.9 mmHg (35-45) 04/10/24 15:52 ABG pO2 58.3 mmHg (80.0-100.0) L 04/10/24 15:52 ABG PO2/FiO2 Ratio 277 04/10/24 15:52 ABG HCO3 23.0 mmol/L (22-26) 04/10/24 15:52 ABG O2 Saturation 89.9 04/10/24 15:52 ABG Base Excess -1.2 mmol/L (-2.0-2.0) 04/10/24 15:52 Idris Test Pos 04/10/24 15:52 A-a O2 Gradient 6.2 mmHg (5-10) 04/10/24 15:52 Hematocrit 38.4 % (42-52) L 04/10/24 15:52 Hgb O2 Saturation 88.2 % (95-100) L 04/10/24 15:52 Carboxyhemoglobin 1.7 %THgb (0.4-20.1) 04/10/24 15:52 Methemoglobin 0.2 % (0.4-1.5) L 04/10/24 15:52 Total Hemoglobin 12.5 g/dL (14-18) L 04/10/24 15:52 Sodium 140.0 mmol/L (131-143) 04/10/24 15:52 Potassium 3.8 mmol/L (3.5-5.0) 04/10/24 15:52 Glucose 110.0 mg/dL (70-115) 04/10/24 15:52 Ionized Calcium 1.2 mmol/L (1.1-1.4) 04/10/24 15:52 O2 Delivery Device Room air 04/10/24 15:52 FiO2 21.0 % 04/10/24 15:52 Behavioral Health Professional ID [place]ro 04/10/24 15:52 Sodium 143 mmol/L (136-145) 04/13/24 04:10 Potassium 4.4 mmol/L (3.5-5.1) 04/13/24 04:10 Chloride 97 mmol/L (98-107) L 04/13/24 04:10 Carbon Dioxide 25 mmol/L (22-29) 04/13/24 04:10 Anion Gap 25.4 (5-19) H 04/13/24 04:10 BUN 25 mg/dL (8-23) H 04/13/24 04:10 Creatinine 0.7 mg/dL (0.7-1.2) 04/13/24 04:10 GFR Calculation 113.9 mL/min (90-130) 04/13/24 04:10 Glucose 133 mg/dL (65-115) H 04/13/24 04:10 Estimat Average Glucose 111 04/10/24 16:03 Hemoglobin A1c 5.5 % (4.0-6.0) 04/10/24 16:03 Calculated Osmolality 302 mOsm/kg (285-295) H 04/13/24 04:10 Lactic Acid 1.1 mmol/L (0.5-2.2) 04/10/24 16:03 Calcium 9.1 mg/dL (8.5-10.5) 04/13/24 04:10 Magnesium 2.2 mg/dL (1.7-2.3) 04/13/24 04:10 Total Bilirubin 0.2 mg/dL (0.15-1.2) 04/10/24 16:03 AST 21 U/L (0-40) 04/10/24 16:03 ALT 13 U/L (0-41) 04/10/24 16:03 Alkaline Phosphatase 62 U/L (40-130) 04/10/24 16:03 C-Reactive Protein 133.8 mg/L (0.0-4.9) H 04/10/24 16:03 NT-Pro-B Natriuret Pep 182 pg/mL (0-125) H 04/10/24 16:03 Total Protein 7.8 g/dL (6.6-8.7) 04/10/24 16:03 Albumin 4.4 g/dL (3.5-5.2) 04/10/24 16:03 Globulin 3.4 g/dL (1.3-4.6) 04/10/24 16:03 Triglycerides 92 mg/dL (0-150) 04/10/24 16:03 Cholesterol 146 mg/dL (0-200) 04/10/24 16:03 LDL Cholesterol, Calc 64 mg/dL (50-129) 04/10/24 16:03 HDL Cholesterol 64 mg/dL (60-100) 04/10/24 16:03 LDL/HDL Ratio 1.00 RATIO (0.00-3.22) 04/10/24 16:03 Cholesterol/HDL Ratio 2.28 mg/dL (1.0-5.00) 04/10/24 16:03 Procalcitonin 0.06 ng/mL (0-0.5) 04/10/24 16:03 TSH 0.31 uIU/mL (0.27-4.20) 04/10/24 16:03 Coronavirus (PCR) Negative (Negative) 04/10/24 17:05 Influenza A (PCR) Positive (Negative) 04/10/24 17:05 Influenza Type B (PCR) Negative (Negative) 04/10/24 17:05 RSV (PCR) Negative (Negative) 04/10/24 17:05 Vitals Last Vital Signs Temp 97.6 F 04/13/24 08:00 Pulse 103 H 04/13/24 08:00 Resp 16 04/13/24 08:00 BP 132/85 04/13/24 08:00 Pulse Ox 96 04/13/24 08:00 O2 Del Method Nasal Cannula 04/13/24 07:40 O2 Flow Rate 2 04/13/24 07:40 Discharge Plan Discharge Patient Disposition: Home Health Service Condition: Stable Prescriptions: New amlodipine 5 mg Tablet 5 mg PO DAILY 30 Days Qty: 30 0RF prednisone 20 mg tablet 20 mg PO BID 5 Days Qty: 10 0RF oseltamivir 75 mg Capsule 75 mg PO BID 2 Days Qty: 4 0RF Continued atorvastatin 20 mg tablet 20 mg PO DAILY Qty: 90 1RF pantoprazole 40 mg tablet,delayed release (DR/EC) 40 mg PO DAILY acetaminophen 325 mg tablet 325 mg PO QID PRN (Reason: Pain) lisinopril 20 mg tablet 20 mg PO DAILY albuterol sulfate 90 mcg/actuation HFA aerosol inhaler 2 puff inhalation Q4H PRN (Reason: Wheezing) Spiriva with HandiHaler 18 mcg capsule, w/inhalation device 1 cap inhalation DAILY 30 Days Qty: 60 6RF Rx Instructions: puncture 1 cap using device; one dose = 2 inhalations budesonide-formoterol [Symbicort] 160-4.5 mcg/actuation HFA aerosol inhaler 2 puff inhalation BID Qty: 10.2 6RF colestipol 1 gram tablet 1 g PO BID Discontinued Excedrin Migraine 250-250-65 mg tablet 1 tab PO Q6H PRN (Reason: Pain) Discharge Orders: Discharge Order (Routine); Ordered 04/13/24 Ordered By: Ridge Green Other Ambulatory Orders: DME: Oxygen (Order) Location: None Selected Ordered By: Ridge Green Referrals: Marko Peng MD, MBBS, MPH [Referring] - 2 weeks (copd) Izabel Stack FNP [Primary Care Provider] - 04/16/24 10:50 am Discharge Diet: Cardiac Discharge Activity: Resume usual activity Patient Instructions: Opioid Safety, Pain Management Discharge Attestations Time Spent in Discharge Care*: greater than 30 min Time Spent in Smoking Cessation: more than 10 minutes Detailed discussion with him about quitting smoking, the risk of malignancy, and the risk of COPD exacerbation, cardiovascular side effects, smoking cessation counseling Quality Metrics Clinical Quality Measures [ No reported AMI, CVA or VTE this stay] Coding Level of Care Code 33129 Total time (in minutes) for Discharge: 45 Diagnoses Influenza A J10.1 Acute exacerbation of chronic obstructive pulmonary disease (COPD) J44.1
--- NOTE | 2024-04-13 12:27 | PC.NURSE ---
Patient will be staying with his friend after d/c until he's stable to return home on his own. I spoke with Arturo from HOME and provided the address to his friend's home as follows: [address] [place] [id number]. Per Arturo, patient was also requesting a portable O2 concentrator, however the length of service is only 3 months per the order. I called and spoke with Dr. Green and obtained a verbal order to change the length of service to 99. I called back and spoke with Arturo and he states that he is now at the office and will bring over all of patient's equipment as soon as he receives the updated order.
--- NOTE | 2024-04-13 16:26 | PC.NURSE ---
Upon review of d/c orders and notes from Dr. Green, he had ordered Home Health for this patient, however Case Management was not working when this was ordered, so no referral had been sent. Upon asking patient about his choice of HH service, he refuses at this time, stating he will follow up with his regular physician if he changes his mind. I spoke with Dr. Green and informed him of this as well as Ct Merino, ramp service manword processor operator Coordination.
--- NOTE | 2024-04-13 16:34 | PC.NURSE ---
Referral faxed to [facility]--Dr. Peng including face sheet, H & P, CXR, and Discharge Summary. Information provided to patient upon d/c and number provided to f/u if he doesn't hear from them within a week.
== END 2024-04-13 13:58 | disposition home or self-care (01) | DRG 193 ==
LOC: ER 17:34 → MEDSURG 17:58
PROVIDERS: Admitting Provider Family Medicine; Emergency Provider Family Medicine; PCP Nurse Practitioner Family; Visit Provider Family Medicine
DX: J10.1 Influenza due to other identified influenza virus with other respiratory manifestations (principal); J96.01 Acute respiratory failure with hypoxia; J44.1 Chronic obstructive pulmonary disease with (acute) exacerbation; I10 Essential (primary) hypertension; F17.210 Nicotine dependence, cigarettes, uncomplicated; K21.9 Gastro-esophageal reflux disease without esophagitis; E78.5 Hyperlipidemia, unspecified
CPT/HCPCS: 36415; 36600; 71045; 80048; 80051; 80053; 80061; 82330; 82805; 83036; 83605; 83735; 83880; 84145; 84443; 85025; 86140; 87040; 87637; 93005; 94640; 94760; 96372; 99222; 99232; 99285; J1100; J2470; J2919; J7626